=== PATIENT | male | born 1960 | race Caucasian/White ===

== ENCOUNTER 2019-01-25 13:03 | Emergency (ER) | payer OTHER ==
[2019-01-25 13:17] VITALS: BP 153/81
--- NOTE | 2019-01-25 15:03 | ED Physician Documentation ---
PD HPI UPPER EXT INJURY - Stated complaint Stated Complaint: FINGER LAC - Chief complaint Chief Complaint: Laceration - History obtained from History obtained from: Patient - History of Present Illness Location: Left, Finger Type of injury: Laceration (cut finger yesterday and cleaned it. Wanting to ensure it should heal okay and not too deep.) Where injury occurred: Home Timing - onset: Yesterday Timing - details: Abrupt onset Worsened by: Palpating Associated symptoms: No: Weakness, Numbness Recently seen: Not recently seen Review of Systems Skin: reports: Laceration (s) Neurologic: denies: Focal weakness, Numbness PD PAST MEDICAL HISTORY - Past Medical History Past Medical History: No Cardiovascular: None Endocrine/Autoimmune: None - Past Surgical History Past Surgical History: Yes - Allergies Allergies/Adverse Reactions: Allergies Allergy/AdvReac Type Severity Reaction Status Date / Time No Known Drug Allergies Allergy Verified 01/25/19 13:15 - Living Situation Living Arrangement: reports: At home - Social History Does the pt smoke?: No Smoking Status: Never smoker Does the pt drink ETOH?: Yes Does the pt have substance abuse?: No PD ED PE NORMAL - Vitals Vital signs reviewed: Yes - General General: Alert and oriented X 3, No acute distress, Well developed/nourished - Derm Derm: Normal color, Warm and dry - Extremities Extremities: Other (left thumb tip with small avulsion of skin, about 1 cm di ameter. Just barely full thickness in center. No FB nor bleeding. No involving nailbed. Not crossing joint. ) Results - Vitals Vitals: Oxygen O2 Source Room air PD MEDICAL DECISION MAKING - ED course Complexity details: considered differential, d/w patient Departure - Departure Disposition: 01 Home, Self Care Clinical Impression: Avulsion, finger tip Qualifiers: Encounter type: initial encounter Qualified Code(s): S61.209A - Unspecified open wound of unspecified finger without damage to nail, initial encounter Condition: Stable Record reviewed to determine appropriate education?: Yes Instructions: ED Avulsion Dermal Comments: This looks like it should heal up okay with normal skin. Have it slightly moisturized with some ointment once or twice daily. Protect it and watch for signs of infection. Otherwise normal activity and use. Discharge Date/Time: 01/25/19 15:24
== END 2019-01-25 15:24 | disposition home or self-care (01) ==
LOC: ED 13:03
DX: S61.012A Laceration without foreign body of left thumb without damage to nail, initial encounter (principal); W26.0XXA Contact with knife, initial encounter; Y92.009 Unspecified place in unspecified non-institutional (private) residence as the place of occurrence of the external cause
CPT/HCPCS: 99281; 99282

== ENCOUNTER 2023-07-31 08:51 | Emergency (ER) | payer OTHER ==
[2023-07-31 09:02] VITALS: O2SAT 100
--- NOTE | 2023-07-31 11:33 | ED Physician Documentation ---
PD HPI BACK PAIN - Stated complaint Stated Complaint: BACK PX - Chief complaint Chief Complaint: Back Pain - Additional information Additional information: 62-year-old male with with no pertinent past medical history presents emergency department for severe lower back pain. Patient says that he was bending over on Thursday heard a loud popping sensation and since then has had increased worsening back pain. He is to the point now today where he is not able to ambulate and had to be wheeled to via wheelchair because of the severity of the pain. He says he is having a hard time standing up and walking no incontinence of urine or stool no recent fevers or chills no history of back trauma no history of back surgery. PD PAST MEDICAL HISTORY - Past Medical History Past Medical History: Yes Cardiovascular: None Endocrine/Autoimmune: None - Past Surgical History Past Surgical History: Yes - Present Medications Home Medications: Ambulatory Orders Medication Instructions Recorded Confirmed Cyclobenzaprine [Flexeril] 10 mg PO TID PRN 6 Days #20 tablet 07/31/23 Naproxen 500 mg PO BID PRN 14 Days #30 07/31/23 tablet Naproxen [Naprosyn] 500 mg PO BID 7 Days #28 tablet 07/31/23 - Allergies Allergies/Adverse Reactions: Allergies Allergy/AdvReac Type Severity Reaction Status Date / Time No Known Drug Allergies Allergy Verified 01/25/19 13:15 - Social History Does the pt smoke?: No Smoking Status: Never smoker Does the pt drink ETOH?: Yes Does the pt have substance abuse?: No - Immunizations Immunizations are current?: Yes PD ED PE NORMAL - Vitals Vital signs reviewed: Yes - General General: Alert and oriented X 3, No acute distress, Well developed/nourished - HEENT HEENT: Atraumatic, PERRL - Neck Neck: Supple, no meningeal sign, No bony TTP - Cardiac Cardiac: RRR - Respiratory Respiratory: No respiratory distress - Back Back: No CVA TTP, No spinal TTP - Derm Derm: Normal color, Warm and dry, No rash - Extremities Extremities: No edema, No calf tenderness / cord - Neuro Neuro: Alert and oriented X 3, collections manager 2-12 intact, No motor deficit, No sensory deficit, Normal speech Eye Opening: Spontaneous Motor: Obeys Commands Verbal: Oriented GCS Score: 15 - Psych Psych: Normal mood, Normal affect - Free text exam Free text exam: Neck and back are without deformity, external skin changes, or signs of trauma. Curvature of the cervical, thoracic, and lumbar spine are within normal limits. Bony features of the shoulders and hips are of equal height bilaterally. No tenderness noted on palpation of the spinous processes. Spinous processes are midline. Cervical, thoracic, and lumbar paraspinal muscles are tender but without spasm. There is discomfort noted with flexion, extension, and wnjs-[id number] rotation of the cervical spine, limited range of motion is noted. Full range of motion including flexion, extension, and xcpm-gq-[id number] rotation of the thoracic and lumbar spine are noted and without discomfort. Straight leg raise test is negative bilaterally. Sensation to the upper and lower extremities is normal bilaterally. No clonus is noted. Narcotics And/Or Vice Detective strength is normal bilaterally. Dorsi/plantar flexion is normal bilaterally. Results - Vitals Vitals: Vital Signs - 24 hr 07/31/23 07/31/23 08:55 13:44 Temperature 36.5 C Heart Rate 57 L 66 Respiratory 18 16 Rate Blood Pressure 150/78 H 162/84 H O2 Saturation 100 100 Oxygen O2 Source Room air - Rads (name of study) MRI lumbar Relevant Findings:: Final report received, EMP independent interpretation of test, Other (Multilevel degenerative disc disease and facet arthrosis, without significant spinal canal or neural) PD Medical Decision Making - ED course ED course: 62-year-old male presents emergency department for lumbar pain. Pain was so severe that he was unable to stand and says that he is experiencing bilateral lower extremity weakness because of the severity of the pain. Unable to stand upright. Because of this we went ahead and pursued an MRI for further evaluation and it appears that patient has multi level degenerative disc disease and facet arthrosclerosis. He does not have any significant spinal canal or neural foraminal narrowing. He was given a Toradol shot here in the emergency department as well as some cyclobenzaprine and Tylenol he has not taken any [id number] medications at home to help with his pain. He is given a prescription of cyclobenzaprine to his preferred pharmacy and told to follow-up with his primary care provider for physical therapy. He is given strict ER return precautions he is told to continue to keep active as he is able and to stick with the medications such as Tylenol and naproxen and cyclobenzaprine [id number]-hve-[id number] for the next couple weeks until he is able to get in with someone for further evaluation. Departure - Departure Disposition: 01 Home, Self Care Clinical Impression: Degenerative disc disease, Lumbago Instructions: ED Back Care Tips, ED Spasm Back No Trauma Prescriptions: Cyclobenzaprine [Flexeril] 10 mg PO TID PRN 6 Days #20 tablet PRN Reason: Spasms Naproxen [Naprosyn] 500 mg PO BID 7 Days #28 tablet Naproxen 500 mg PO BID PRN 14 Days #30 tablet PRN Reason: Pain 1-4 Comments: Thank you for trusting us with your care. We have completed an MRI of your lower back and we are seeing arthrosclerosis and bulging disks but no emergent findings at this point in time. I have copied and pasted the radiology read below for you. Please follow-up with your primary care provider for physical therapy referral as I think this is your next best step. Make sure that you are continuing to move around and staying on top of your pain with 1000 mg of Tylenol every 8 hours and 500 mg of naproxen every 12 hours for pain and discomfort as well as a muscle relaxer that I prescribed called cyclobenzaprine. You cannot fly or drive while Taking cyclobenzaprine. EXAM: [id number] MRI/LUMBWO ([id number]) PROCEDURE: Lumbar Spine WO INDICATIONS: new bilateral weakness TECHNIQUE: Noncontrast sagittal T1 spin echo and T2 fast echo, sagittal STIR, axial T1 and T2 fast spin echo through the lumbar spine. In cases with scoliosis, additional coronal T2 fast spin echo may be performed. COMPARISON: None. FINDINGS: Image quality: Excellent. Alignment and Curvature: There is normal bony alignment. Bone Marrow: Marrow is of normal overall signal. No acute vertebral body compression fractures. Spinal Cord: Conus medullaris terminates at the L1 level. Visualized cord demonstrates normal signal and size. Paraspinous Soft Tissues: No paravertebral masses. T12-L1: Normal in appearance. L1-L2: Broad-based disc bulge. Right facet effusion. L2-L3: Broad-based disc bulge, left facet effusion. L3-L4: Broad-based disc bulge, mild bilateral facet arthrosis. L4-L5: Broad-based disc bulge, facet hypertrophy. L5-S1: Broad-based disc bulge. Annular fissure. Mild facet hypertrophy. Mild left neural foraminal narrowing. IMPRESSION: Multilevel degenerative disc disease and facet arthrosis, without significant spinal canal or neural foraminal narrowing. Discharge Date/Time: 07/31/23 13:45
[2023-07-31] MEDS: ACETAMINOPHEN 325 MG TABLET PO STA (11:49)
--- NOTE | 2023-07-31 12:54 | MRI Report ---
PROCEDURE: Lumbar Spine WO INDICATIONS: new bilateral weakness TECHNIQUE: Noncontrast sagittal T1 spin echo and T2 fast echo, sagittal STIR, axial T1 and T2 fast spin echo thr ough the lumbar spine. In cases with scoliosis, additional coronal T2 fast spin echo may be performe d. COMPARISON: None. FINDINGS: Image quality: Excellent. Alignment and Curvature: There is normal bony alignment. Bone Marrow: Marrow is of normal overall signal. No acute vertebral body compression fractures. Spinal Cord: Conus medullaris terminates at the L1 level. Visualized cord demonstrates normal signa l and size. Paraspinous Soft Tissues: No paravertebral masses. T12-L1: Normal in appearance. L1-L2: Broad-based disc bulge. Right facet effusion. L2-L3: Broad-based disc bulge, left facet effusion. L3-L4: Broad-based disc bulge, mild bilateral facet arthrosis. L4-L5: Broad-based disc bulge, facet hypertrophy. L5-S1: Broad-based disc bulge. Annular fissure. Mild facet hypertrophy. Mild left neural foraminal narrowing. IMPRESSION: Multilevel degenerative disc disease and facet arthrosis, without significant spinal canal or neural foraminal narrowing. Reviewed by: Juanpablo Rosa MD on 07/31/2023 12:53 PM PDT Approved by: Juanpablo Rosa MD on 07/31/2023 12:53 PM PDT Station ID: [id number]
[2023-07-31] MEDS: CYCLOBENZAPRINE 10 MG TABLET PO STA (13:26)
[2023-07-31] MEDS: KETOROLAC 30 MG/ML VIAL IM STA (13:26)
[2023-07-31 13:47] VITALS: BP 162/84
== END 2023-07-31 13:45 | disposition home or self-care (01) ==
LOC: ED 08:51
DX: M51.36 Other intervertebral disc degeneration, lumbar region (principal)
CPT/HCPCS: 72148; 96372; 99284; A9270